=== PATIENT | female | born 1995 | race Caucasian/White ===

== ENCOUNTER 2018-07-06 04:47 | Emergency (ER) | payer SELFPAY ==
--- OUTSIDE RECORDS SUMMARY | 2018-07-06 04:50 | XMS REPORT ---
:1995 Author Organization eClinicalWorks Care Team Providers Name Role Phone Crystal Moody Provider Role Unavailable Allergies, Adverse Reactions, Alerts Substance Reaction Event Type N.K.D.A. Info Not Available Non Drug Allergy Problems Problem Type Condition Code Onset Dates Condition Status Assessment Women's annual routine Z01.419 Active gynecological examination Problem Acne, unspecified acne type L70.9 Active Assessment Furuncle of groin L02.224 Active Assessment Acne, unspecified acne type L70.9 Active Assessment Screen for STD (sexually Z11.3 Active transmitted disease) Medications No Known Medications Results No Known Results Summary Purpose [employer] Submission
--- OUTSIDE RECORDS SUMMARY | 2018-07-06 04:50 | XMS REPORT ---
:1995 Author Organization eClinicalWorks Care Team Providers Name Role Phone Crystal Moody Provider Role Unavailable Allergies, Adverse Reactions, Alerts Substance Reaction Event Type N.K.D.A. Info Not Available Non Drug Allergy Problems Problem Type Condition Code Onset Dates Condition Status Assessment Insertion of Nexplanon Z30.017 Active Problem Acne, unspecified acne type L70.9 Active Assessment Encounter for initial prescription Z30.017 Active of implantable subdermal contraceptive Medications Medication Code Code Instructions Start End Date Status Dosage System Date Nexplanon [facility] [id number] 68 MG September 01, Active as directed Subcutaneous 2017 Results No Known Results Summary Purpose eClinicalWorks Submission
--- OUTSIDE RECORDS SUMMARY | 2018-07-06 04:50 | XMS REPORT ---
:1995 Author Organization eClinicalWorks Care Team Providers Name Role Phone Crystal Moody Provider Role Unavailable Allergies No Known Allergies Problems Problem Type Condition Code Onset Dates Condition Status Problem Acne, unspecified acne type L70.9 Active Medications Medication Code System Code Instructions Start Date End Date Status Dosage Diflucan [facility] [id number] 150 MG Orally August 29, August 31, Active 1 tablet Take one now and 2017 2017 repeat dose in 72h Results No Known Results Summary Purpose eClinicalWorks Submission
--- OUTSIDE RECORDS SUMMARY | 2018-07-06 04:50 | XMS REPORT ---
:1995 Author Organization eClinicalWorks Care Team Providers Name Role Phone Raul Davidson Provider Role Unavailable Allergies, Adverse Reactions, Alerts Substance Reaction Event Type N.K.D.A. Info Not Available Non Drug Allergy Problems Problem Type Condition Code Onset Dates Condition Status Assessment Encounter for surveillance of Z30.46 Active implantable subdermal contraceptive Problem Routine screening for STI (sexually Z11.3 Active transmitted infection) Problem Encounter for surveillance of Z30.46 Active implantable subdermal contraceptive Problem Well woman exam with routine Z01.419 Active gynecological exam Assessment Well woman exam with routine Z01.419 Active gynecological exam Assessment Routine screening for STI (sexually Z11.3 Active transmitted infection) Problem Acne, unspecified acne type L70.9 Active Medications Medication Code Code Instructions Start End Date Status Dosage System Date Nexplanon [facility] [id number] 68 MG September 01, Active as directed Subcutaneous 2017 Results Name Result Date Reference Range Unit Abnormality Flag TSH W/REFLEX TO FT4 ----TSH W/REFLEX TO 1.02 [id number] mIU/L N FT4 HEPATITIS B SURFACE ANTIGEN W/REFL CONFIRM ----HEPATITIS B NON-REACTIVE [id number] NON-REACTIVE N SURFACE ANTIGEN URINALYSIS AUTO W/O SCOPE (31302) ----NIT neg [id number] ----URO 0.2 [id number] ----PROTEIN neg [id number] ----pH 7.0 [id number] ----BLO neg [id number] ----GLUCOSE neg [id number] ----LETITIA TRACE [id number] ----BILIRUBIN neg [id number] ----KETONES neg [id number] ----SPECIFIC 1.015 [id number] GRAVITY RPR (DX) W/REFL TITER AND CONFIRMATORY TESTING ----RPR (DX) W/REFL NON-REACTIVE [id number] NON-REACTIVE N TITER AND CONFIRMATORY TESTING CBC (INCLUDES DIFF/PLT) ----RDW 11.8 [id number] 11.0-15.0 % N ----MCHC 34.3 57495775 32.0-36.0 g/dL N ----MCH 31.7 [id number] 27.0-33.0 pg N ----MCV 92.5 [id number] 80.0-100.0 fL N ----HEMATOCRIT 38.5 [id number] 35.0-45.0 % N ----HEMOGLOBIN 13.2 51644284 11.7-15.5 g/dL N ----BASOPHILS 0.5 00949816 % N ----RED BLOOD CELL 4.16 [id number] 3.80-5.10 Million/uL N COUNT ----WHITE BLOOD 8.2 [id number] 3.8-10.8 Thousand/uL N CELL COUNT ----MONOCYTES 5.6 60866007 % N ----ABSOLUTE 107 63289535 15-500 cells/uL N EOSINOPHILS ----EOSINOPHILS 1.3 73340204 % N ----ABSOLUTE 41 56071136 0-200 cells/uL N BASOPHILS ----NEUTROPHILS 65.6 88412996 % N ----LYMPHOCYTES 27.0 16311733 % N ----MPV 10.6 [id number] 7.5-12.5 fL N ----ABSOLUTE 5379 63784494 7402-3612 cells/uL N NEUTROPHILS ----ABSOLUTE 2214 18387133 850-3900 cells/uL N LYMPHOCYTES ----ABSOLUTE 459 50148618 200-950 cells/uL N MONOCYTES ----PLATELET COUNT 247 [id number] 140-400 Thousand/uL N HIV AG/AB 4TH GEN ----HIV AG/AB, 4TH NON-REACTIVE [id number] NON-REACTIVE N GEN Summary Purpose eClinicalWorks Submission
--- OUTSIDE RECORDS SUMMARY | 2018-07-06 04:50 | XMS REPORT ---
:1995 Author Organization eClinicalWorks Care Team Providers Name Role Phone Crystal Moody Provider Role Unavailable Allergies No Known Allergies Problems Problem Type Condition Code Onset Dates Condition Status Problem Acne, unspecified acne type L70.9 Active Medications No Known Medications Results No Known Results Summary Purpose eClinicalWorks Submission
[2018-07-06] MEDS ORDERED: DERMABOND SKIN ADHESIVE TOP ONE (05:13)
--- NOTE | 2018-07-06 05:41 | ER ---
Nurse's Notes [facility] Name: Silke Perkins Age: 23 yrs Sex: Female : 1995 Arrival Date: 07/06/2018 Time: 04:48 Bed 5 Private MD: Diagnosis: Syncope and collapse;Laceration without foreign body of other part of head-nose;Dysmenorrhea, unspecified;Epistaxis;Fracture of nasal bones Presentation: 07/06 04:55 Presenting complaint: Patient states: I woke up around 0430 H having abdominal cramps I rr5 went to restroom to pee and when I am standing to get some tampons i pass out and hit my face on the tiles. denies nausea and vomiting. 04:55 Transition of care: patient was not received from another setting of care. Onset of rr5 symptoms was July 06, 2018. Risk Assessment: Do you want to hurt yourself or someone else? Patient reports no desire to harm self or others. Initial Sepsis Screen: Does the patient meet any 2 criteria? No. Patient's initial sepsis screen is negative. Does the patient have a suspected source of infection? No. Patient's initial sepsis screen is negative. Note cut wound sustained at nose bridge area. pain score of 5/10 cut wound wound on the nose. Care prior to arrival: None. 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 - Social history:: Smoking status: Patient/guardian denies using tobacco, Patient/guardian denies using alcohol, street drugs. - Family history:: not pertinent. - Ebola Screening: : Patient negative for fever greater than or equal to 101.5 degrees Fahrenheit, and additional compatible Ebola Virus Disease symptoms Patient denies exposure to infectious person Patient denies travel to an Ebola-affected area in the 21 days before illness onset. Screenin:12 Abuse screen: Denies threats or abuse. Denies injuries from another. Nutritional rr5 screening: No deficits noted. Tuberculosis screening: No symptoms or risk factors identified. Fall Risk Fall in past 12 months (25 points). No IV (0 pts). Ambulatory Aid- None/Bed Rest/Nurse Assist (0 pts). Gait- Normal/Bed Rest/Wheelchair (0 pts) Mental Status- Oriented to own ability (0 pts). Total Branch Fall Scale indicates Low Risk Score (25-44 pts). Fall prevention measures have been instituted. Side Rails Up X 2 Placed close to Nursing Station Frequent Obs/Assesments occuring Family Present and informed to notify staff if they need to leave bedside As available Patient and Family Educated on Fall Prevention Program and strategies. Assessment: 05:00 General: Appears in no apparent distress. uncomfortable, Behavior is crying. rr5 05:00 Pain: Complains of pain in nose Pain does not radiate. Pain currently is 5 out of 10 on rr5 a pain scale. Quality of pain is described as aching, Pain began suddenly, Is intermittent. Neuro: Level of Consciousness is awake, alert, obeys commands, Oriented to person, place, time, situation, Appropriate for age Reports a syncopal episode. Cardiovascular: Capillary refill < 3 seconds Patient's skin is warm and dry. Rhythm is regular. Respiratory: Airway is patent Respiratory effort is even, unlabored, Respiratory pattern is regular, symmetrical. GI: Abdomen is round. : Reports cramps on supra pubic area. EENT: No signs and/or symptoms were reported regarding the EENT system. Derm: Skin is intact, Skin temperature is warm Wound noted nose Wound is cut wound due to fall. Musculoskeletal: Capillary refill < 3 seconds, Range of motion: intact in all extremities, swelling at nose noted. 05:58 Reassessment: Patient appears in no apparent distress at this time. Patient is alert, rr5 oriented x 3, equal unlabored respirations, skin warm/dry/pink. discharge instruction given and explained without complaints made. Patient states feeling better. Patient states symptoms have improved. Vital Signs: 04:55 BP 122 / 90; Pulse 88; Resp 17; Temp 98.5; Pulse Ox 100% ; Weight 61.23 kg; Height 5 rr5 ft. 2 in. (157.48 cm); Pain 5/10; 05:11 BP 124 / 81 RA Supine; Pulse 83; rr5 05:12 BP 131 / 78 RA Sitting; Pulse 86 RA; rr5 05:15 BP 113 / 64 RA Standing; Pulse 76; rr5 05:59 BP 115 / 65; Pulse 75; Resp 17; Temp 98.4; Pulse Ox 99% on R/A; rr5 04:55 Body Mass Index 24.69 (61.23 kg, 157.48 cm) rr5 ED Course: 04:48 Patient arrived in ED. ds1 04:52 Inder Vincent MD is Attending Physician. mercedes 04:58 Alpesh Adams, RN is Primary Nurse. rr5 05:08 Triage completed. rr5 05:12 Arm band placed on. rr5 05:15 Patient has correct armband on for positive identification. Bed in low position. Call rr5 light in reach. Side rails up X2. 05:20 Assist provider with laceration repair on nose that was 2.5 cm. or less using rr5 Dermabond. Set up tray. Performed by Inder Vincetn MD Patient tolerated well. 05:33 Patient moved to radiology via wheelchair. kw 05:33 X-ray completed. Patient tolerated procedure well. kw 05:33 Patient moved back from radiology. kw 05:40 Sandra Michael MD is Referral Physician. mercedes 05:51 Nasal Bones XRAY In Process Unspecified. EDMS 05:59 Patient did not have IV access during this emergency room visit. rr5 Administered Medications: 05:56 Drug: KeFLEX 500 mg Route: PO; rr5 06:00 Follow up: Response: Medication administered at discharge. rr5 Point of Care Testing: Blood Glucose: 05:16 Blood Glucose: 112 mg/dL; rr5 Ranges: Outcome: 05:40 Discharge ordered by . mercedes 05:59 Discharged to home ambulatory, with family. rr5 05:59 Condition: stable 05:59 Discharge instructions given to patient, family, Instructed on discharge instructions, follow up and referral plans. medication usage, Demonstrated understanding of instructions, follow-up care, medications, Prescriptions given X 1. 06:00 Patient left the ED. rr5 Signatures: Dispatcher [employer] EDW[place] Inder Vincent MD MD cha Sanford, Demi ds1 Elsi Evangelista kw Alpesh Adams, RN RN rr5
--- NOTE | 2018-07-06 05:41 | EDPHYS ---
Physician Documentation [facility] Name: Silke Perkins Age: 23 yrs Sex: Female : 1995 Arrival Date: 07/06/2018 Time: 04:48 Bed 5 Private MD: ED Physician Inder Vincent HPI: 07/06 05:04 This 23 yrs old Female presents to ER via Unassigned with complaints of mercedes Syncope. 05:04 The patient has experienced syncope, became unresponsive. Onset: The symptoms/episode mercedes began/occurred just prior to arrival. Duration: This was a single episode. Context: the episode(s) was witnessed, by no one, occurred at home. Associated injury: Head/face: nose, laceration, pain, swelling. Associated signs and symptoms: The patient has no apparent associated signs or symptoms, Pertinent positives: vaginal bleeding, menstral cramps. The patient has not experienced similar symptoms in the past. 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 - Social history:: Smoking status: Patient/guardian denies using tobacco, Patient/guardian denies using alcohol, street drugs. - Family history:: not pertinent. - Ebola Screening: : Patient negative for fever greater than or equal to 101.5 degrees Fahrenheit, and additional compatible Ebola Virus Disease symptoms Patient denies exposure to infectious person Patient denies travel to an Ebola-affected area in the 21 days before illness onset. ROS: 05:04 Constitutional: Negative for fever, chills, and weight loss, Eyes: Negative for injury, mercedes pain, redness, and discharge, ENT: Negative for injury, pain, and discharge, Neck: Negative for injury, pain, and swelling, Cardiovascular: Negative for chest pain, palpitations, and edema, Respiratory: Negative for shortness of breath, cough, wheezing, and pleuritic chest pain, Abdomen/GI: Negative for abdominal pain, nausea, vomiting, diarrhea, and constipation, Back: Negative for injury and pain, : Negative for injury, bleeding, discharge, and swelling, MS/Extremity: Negative for injury and deformity, Psych: Negative for depression, anxiety, suicide ideation, homicidal ideation, and hallucinations, Allergy/Immunology: Negative for hives, rash, and allergies, Endocrine: Negative for neck swelling, polydipsia, polyuria, polyphagia, and marked weight changes, Hematologic/Lymphatic: Negative for swollen nodes, abnormal bleeding, and unusual bruising. 05:04 Skin: Positive for laceration(s). Exam: 05:04 Constitutional: This is a well developed, well nourished patient who is awake, alert, mercedes and in no acute distress. Head/Face: Normocephalic, atraumatic. Eyes: Pupils equal round and reactive to light, extra-ocular motions intact. Lids and lashes normal. Conjunctiva and sclera are non-icteric and not injected. Cornea within normal limits. Periorbital areas with no swelling, redness, or edema. ENT: Nares patent. No nasal discharge, no septal abnormalities noted. Tympanic membranes are normal and external auditory canals are clear. Oropharynx with no redness, swelling, or masses, exudates, or evidence of obstruction, uvula midline. Mucous membranes moist. Neck: Trachea midline, no thyromegaly or masses palpated, and no cervical lymphadenopathy. Supple, full range of motion without nuchal rigidity, or vertebral point tenderness. No Meningismus. Chest/axilla: Normal chest wall appearance and motion. Nontender with no deformity. No lesions are appreciated. Cardiovascular: Regular rate and rhythm with a normal S1 and S2. No gallops, murmurs, or rubs. Normal PMI, no JVD. No pulse deficits. Respiratory: Lungs have equal breath sounds bilaterally, clear to auscultation and percussion. No rales, rhonchi or wheezes noted. No increased work of breathing, no retractions or nasal flaring. Abdomen/GI: Soft, non-tender, with normal bowel sounds. No distension or tympany. No guarding or rebound. No evidence of tenderness throughout. Back: No spinal tenderness. No costovertebral tenderness. Full range of motion. Skin: Warm, dry with normal turgor. Normal color with no rashes, no lesions, and no evidence of cellulitis. MS/ Extremity: Pulses equal, no cyanosis. Neurovascular intact. Full, normal range of motion. Neuro: Awake and alert, GCS 15, oriented to person, place, time, and situation. Cranial nerves II-XII grossly intact. Motor strength 5/5 in all extremities. Sensory grossly intact. Cerebellar exam normal. Normal gait. Psych: Awake, alert, with orientation to person, place and time. Behavior, mood, and affect are within normal limits. Vital Signs: 04:55 BP 122 / 90; Pulse 88; Resp 17; Temp 98.5; Pulse Ox 100% ; Weight 61.23 kg; Height 5 rr5 ft. 2 in. (157.48 cm); Pain 5/10; 05:11 BP 124 / 81 RA Supine; Pulse 83; rr5 05:12 BP 131 / 78 RA Sitting; Pulse 86 RA; rr5 05:15 BP 113 / 64 RA Standing; Pulse 76; rr5 05:59 BP 115 / 65; Pulse 75; Resp 17; Temp 98.4; Pulse Ox 99% on R/A; rr5 04:55 Body Mass Index 24.69 (61.23 kg, 157.48 cm) rr5 Laceration: 05:31 Wound Repair of .5cm ( 0.2in ) subcutaneous laceration to nose. Linear shaped.. Distal mercedes neuro/vascular/tendon intact. Anesthesia: none with 0 mls of none. Wound prep: Simple cleansing by me. Skin closed with 1-0 Adhesive skin closure using Dermabond. Patient tolerated well. MDM: 04:52 Patient medically screened. [facility] 05:07 Data reviewed: vital signs, nurses notes, lab test result(s), EKG, radiologic studies. [facility] 07/06 05:20 Order name: Urine Dipstick--Ancillary (enter results) [facility] 07/06 05:20 Order name: Urine --Ancillary (enter results) [facility] 07/06 05:02 Order name: Dermabond; Complete Time: 05:20 [facility] 07/06 05:02 Order name: EKG; Complete Time: 05:03 [facility] 07/06 05:02 Order name: Nasal Bones XRAY [facility] 07/06 05:02 Order name: Urine Dipstick-Ancillary (obtain specimen); Complete Time: 05:16 [facility] 07/06 05:02 Order name: Wound Care; Complete Time: 05:20 [facility] 07/06 05:02 Order name: Urine Test (obtain specimen); Complete Time: 05:16 [facility] 07/06 05:02 Order name: EKG - Nurse/Tech; Complete Time: 05:39 [facility] 07/06 05:02 Order name: Orthostatics; Complete Time: 05:18 [facility] Administered Medications: 05:56 Drug: KeFLEX 500 mg Route: PO; rr5 06:00 Follow up: Response: Medication administered at discharge. rr5 Point of Care Testing: Blood Glucose: 05:16 Blood Glucose: 112 mg/dL; rr5 Ranges: Critical Glucose Levels:Adult <50 mg/dl or >400 mg/dl <40 mg/dl or >180 mg/dl Disposition: 07/06/18 05:40 Discharged to Home. Impression: Syncope and collapse, Laceration without foreign body of other part of head - nose, Dysmenorrhea, unspecified, Epistaxis, Fracture of nasal bones. - Condition is Stable. - Discharge Instructions: Dysmenorrhea, Facial Laceration, Nasal Fracture, Syncope, Facial Laceration, Nywx-yu-Eicv, Syncope, Sgrj-tj-Cvuv, Nasal Fracture, Hdfl-nm-Euiw, Weakness, Zqyk-eb-Xjvj, Dysmenorrhea, Ptdq-qw-Xndm. - Prescriptions for Keflex 500 mg Oral Capsule - take 1 capsule by ORAL route every 6 hours for 10 days; 28 capsule. - Medication Reconciliation Form, Thank You Letter, Antibiotic Education, Prescription Opioid Use, Work release form form. - Follow up: Private Physician; When: 2 - 3 days; Reason: Recheck today's complaints, Continuance of care, Re-evaluation by your physician. Follow up: Sandra Michael MD; When: 2 - 3 days; Reason: Recheck today's complaints, Re-evaluation by your physician. - Problem is new. - Symptoms have improved. Signatures: Dispatcher [employer] Inder Trujillo MD MD cha Roque, Raymond RN RN rr5 Corrections: (The following items were deleted from the chart) 06:00 05:40 07/06/2018 05:40 Discharged to Home. Impression: Syncope and collapse; Laceration rr5 without foreign body of other part of head - nose; Dysmenorrhea, unspecified; Epistaxis; Fracture of nasal bones. Condition is Stable. Discharge Instructions: Dysmenorrhea, Facial Laceration, Syncope, Facial Laceration, Htzp-zn-Fdpj, Syncope, Emuh-zn-Hfez, Weakness, Khff-ji-Opai, Dysmenorrhea, Roxb-te-Xnyb. Prescriptions for Keflex 500 mg Oral Capsule - take 1 capsule by ORAL route every 6 hours for 10 days; 28 capsule. and Forms are Medication Reconciliation Form, Thank You Letter, Antibiotic Education, Prescription Opioid Use. Follow up: Private Physician; When: 2 - 3 days; Reason: Recheck today's complaints, Continuance of care, Re-evaluation by your physician. Follow up: Sandra Michael; When: 2 - 3 days; Reason: Recheck today's complaints, Re-evaluation by your physician. Problem is new. Symptoms have improved. mercedes
[2018-07-06 05:49] LABS: Urine Blood 3+ (NEG); Urine Glucose NEGATIVE (NEG); Urine Protein NEGATIVE (NEG); Urine Specific Gravity 1.025 (1.005-1.030); Urine pH 5.5 (5.0-7.0)
--- NOTE | 2018-07-06 05:52 | EKG ---
Test Date: 2018-07-06 Test Time: 05:23:58 Health Promotion Educator: BRENDA MEASUREMENT RESULTS: Intervals: Rate: 77 MS: 150 QRSD: 98 QT: 382 QTc: 432 [place]: P: 40 MS: 150 QRS: 74 T: 50 INTERPRETIVE STATEMENTS: Normal sinus rhythm with sinus arrhythmia RSR' or QR pattern in V1 suggests right ventricular conduction delay Borderline ECG Compared to ECG 10/18/2011 13:07:51 RSR' in V1 or V2 now present Electronically Signed On 07-06-18 05:52:40 CDT by Aron Rodríguez
[2018-07-06] MEDS ORDERED: CEPHALEXIN 250 MG CAP ONE (06:05)
--- NOTE | 2018-07-06 07:52 | RAD REPORT ---
EXAM DESCRIPTION: RAD - Nasal Bones - 07/06/2018 5:50 am CLINICAL HISTORY: Facial pain status post trauma FINDINGS: Mildly depressed nasal bone fracture Mild deviation of the nasal septum
== END 2018-07-06 06:00 | disposition home or self-care (01) ==
LOC: ER 04:47
PROC: 0JQ10ZZ Repair Face Subcutaneous Tissue and Fascia, Open Approach (ICD-10-PCS; principal; 2018-07-06)
DX: R55 Syncope and collapse (principal); S01.21XA Laceration without foreign body of nose, initial encounter; S02.2XXA Fracture of nasal bones, initial encounter for closed fracture; W18.30XA Fall on same level, unspecified, initial encounter; Y92.009 Unspecified place in unspecified non-institutional (private) residence as the place of occurrence of the external cause; N94.6 Dysmenorrhea, unspecified
CPT/HCPCS: 70160; 81003; 81025; 82962; 93005; 99284

== ENCOUNTER 2021-01-30 10:52 | Emergency (ER) | payer BC, SELFPAY ==
--- OUTSIDE RECORDS SUMMARY | 2021-01-30 10:55 | XMS REPORT | Continuity of Care Document ---
:1995 Author Organization [facility] t Address [address] [place] [address] Care Team Providers Name Role Phone Pcp, Does Not Have A Primary Care Physician Jeane RIVERA Attending Clinician Unavailable Kameron Harris MD Attending Clinician KAMERON HARRIS Attending Clinician Unavailable Doctor Unassigned, Name Attending Clinician Unavailable Payers Payer Name Policy Type Policy Number Effective Date Expiration Date S ource Problems Condition Condition Condition Status Onset Resolution Last Treating Co mments Source Name Details Category Date Date Treatment Clinician Date Missed Missed Disease Active 2020-03 Univers 1-16 ity of 00:00: [address] History of History of Disease Active 2020-03 U nivers anxiety anxiety 0-11 ity of 00:00: [address] Obesity Obesity Disease Active Univers (BMI (BMI 9-13 ity of 30-39.9) 30-39.9) 00:00: [address] Acne, Acne, Problem Active [facility] unspecifie Andreia kes - d acne d acne Memoria type type l Outpati ent Clinics Encounter Encounter Problem Active [facility] - surveillan surveillan Me moria ce of ce of l implantabl implantabl Ou tpati e e ent subdermal subdermal Clin ics contracept contracept geoffrey geoffrey Routine Routine Diagnosis [facility] screening [facility] - for STI for STI Memoria (sexually (sexually l transmitte transmitte Ou tpati d d ent infection) infection) Cl inics Well woman Well woman Diagnosis Active [facility] exam with exam with Luke [facility] - routine routine Memoria gynecologi gynecologi l an exam an exam Outpat i ent Clinics Allergies, Adverse Reactions, Alerts Allergy Allergy Status Severity Reaction(s) Onset Inactive Treating Comm ents Source Name Type Date Date Clinician NO KNOWN Drug Active Univers ALLERGIE Class ity of S [facility] Social History Social Habit Start Date Stop Date Quantity Comments Source ASSERTION [facility] Exposure to Not sure [facility] SARS-CoV-2 [facility] Branch Alcohol intake 2021-01-19 2021-01-19 Ex-drinker [facility] 00:00:00 00:00:00 (finding) [facility] History SDOH 2019-11-14 2019-11-14 99 University o f Alcohol Frequency 00:00:00 00:00:00 [place] [facility] History SDOH 2019-11-14 2019-11-14 99 University o f Alcohol Std 00:00:00 00:00:00 [place] [facility] History SDWY 2019-11-14 2019-11-14 99 University o f Alcohol Binge 00:00:00 00:00:00 [place] [facility] Alcohol Comment 2019-11-14 2019-11-14 social Universit y of 00:00:00 00:00:00 [facility] Sex Assigned At [birth year] Universit y of 00:00:00 00:00:00 [facility] Smoking Status Start Date Stop Date Source Never smoker [facility] Medications Ordered Filled Start Stop Current Ordering Indication Dosage Frequency Signature Comments Components Source Medication Medication Date Date Medication? Clinician (SIG) Name Name 2020-03 Yes Take by Unive rs vit 0-11 mouth. ity of calc,iron,f 15:03: [place] [address] Medical ( Branch VITAMIN ORAL) 2020-03 Yes Take by Unive rs vit 0-11 mouth. ity of calc,iron,f 15:03: [place] [address] Medical ( Branch VITAMIN ORAL) 2020-03 Yes Take by Unive rs vit 0-11 mouth. ity of calc,iron,f 15:03: [place] [address] Medical ( Branch VITAMIN ORAL) 2020-03 Yes Take by Unive rs vit 0-11 mouth. ity of calc,iron,f 15:03: [place] [facility] ( Branch VITAMIN ORAL) SERTraline Yes 50mg Take 50 mg U nivers (ZOLOFT) 50 9-10 by mouth ity of mg tablet 10:19: daily. [address] SERTraline Yes 50mg Take 50 mg U nivers (ZOLOFT) 50 9-10 by mouth ity of mg tablet 10:19: daily. [address] SERTraline Yes 50mg Take 50 mg U nivers (ZOLOFT) 50 9-10 by mouth ity of mg tablet 10:19: daily. [address] SERTraline Yes 50mg Take 50 mg U nivers (ZOLOFT) 50 9-10 by mouth ity of mg tablet 10:19: daily. [address] Nexplanon Nexplanon Yes Raul as [facility] directed [facility] - 00:00: [facility] Immunizations Ordered Filled Immunization Date Status Comments [facility] e Immunization Name Name SARS-COV-2 COVID-19 2020-08-12 Completed Unive rsity of PFIZER VACCINE 00:00:00 [facility] SARS-COV-2 COVID-19 2020-08-12 Completed Unive rsity of PFIZER VACCINE 00:00:00 [facility] SARS-COV-2 COVID-19 2020-08-12 Completed Unive rsity of PFIZER VACCINE 00:00:00 [facility] SARS-COV-2 COVID-19 2020-08-12 Completed Unive rsity of PFIZER VACCINE 00:00:00 [facility] SARS-COV-2 COVID-19 2020-07-22 Completed Unive rsity of PFIZER VACCINE 00:00:00 [facility] SARS-COV-2 COVID-19 2020-07-22 Completed Unive rsity of PFIZER VACCINE 00:00:00 [facility] SARS-COV-2 COVID-19 2020-07-22 Completed Unive rsity of PFIZER VACCINE 00:00:00 [facility] SARS-COV-2 COVID-19 2020-07-22 Completed Unive rsity of PFIZER VACCINE 00:00:00 [facility] Vital Signs Vital Name Observation Time Observation Value Comments Source Systolic blood 2021-01-19 20:10:00 112 mm[Hg] Univer sity of pressure [facility] Diastolic blood 2021-01-19 20:10:00 80 mm[Hg] Unive rsity of pressure [facility] Heart rate 2021-01-19 20:10:00 83 /min [facility] Body temperature 2021-01-19 20:10:00 37.11 Candy [facility] Respiratory rate 2021-01-19 20:10:00 18 /min [facility] Body height 2021-01-19 20:10:00 157.5 cm [facility] ty [facility] Body weight 2021-01-19 20:10:00 81.647 kg [facility] BMI 2021-01-19 20:10:00 32.92 kg/m2 [facility] Procedures Procedure Date / Time Performing Clinician Source Performed US OB TRANSVAGINAL 2021-01-19 21:28:14 Errol Harris [facility] 2021-01-12 06:01:00 Doctor Unassigned, No [facility] ULTRASOUND Name [facility] Encounters Start End Encounter Admission Attending Care Care Encounter Source Date/Time Date/Time Type Type Clinicians Facility Department ID 2021-01-30 2021-01-30 Nurse MERLY Ching [id number] Univers 00:00:00 00:00:00 Triage Sherri MICK [id number] it y of [facility] [id number] Lucio as [phone] [address] 2021-01-19 2021-01-19 Office Errol Harris [facility] [id number] Univers 13:49:46 14:49:27 Visit Kameron MOBLEY [id number] i ty [facility] [id number] [phone] Mo dical [address] 2021-01-19 2021-01-19 Outpatient R ERROL HARRIS [facility] [id number] Univers 13:45:00 14:49:27 ity [facility] 2021-01-12 2021-01-12 Orders Doctor MERLY [id number] 00:00:00 00:00:00 Only Unassigned, MICK [id number] ity of [place] [facility] [id number] Lucio as [phone] [address] 2018-02-28 2018-02-28 Outpatient Artie Alvat [id number] [facility] [address] 10:45:00 10:45:00 [facility] 2017-09-01 2017-09-01 Outpatient [place] [id number] 11:15:00 11:15:00 [facility] 2017-08-30 2017-08-30 Outpatient Artie [place] [id number] 13:17:00 13:17:00 t [facility] 2017-08-29 2017-08-29 Outpatient [place] [id number] 17:12:00 17:12:00 t [facility] 2017-08-24 2017-08-24 Outpatient [place] [id number] 10:15:00 10:15:00 t [facility] Results This patient has no known results.
[2021-01-30] MEDS ORDERED: NA CHLORIDE 0.9% 1,000 ML ONE (11:45)
[2021-01-30 12:00] LABS: Absolute Lymphocytes (CBC) 1.5 K/uL (0.7-4.9); Basophils % 0.2 % (0-1.3); Hematocrit 34.5 % (36.0-45.0); MPV 7.7 fL (7.6-11.3); RBC Red Blood Cell Count 3.74 M/uL (3.86-4.86)
[2021-01-30 12:22] LABS: BUN Blood Urea Nitrogen 11 mg/dL (7-18); Bicarbonate 23 mmol/L (21-32); Glucose Level 120 mg/dL (74-106); Potassium 3.9 mmol/L (3.5-5.1); Sodium Level 138 mmol/L (136-145)
[2021-01-30 12:33] LABS: Blood Morphology Comment NOT SEEN (NOT SEEN); Platelet Estimate ADEQ; White Blood Cell Scan OK (OK)
[2021-01-30 12:44] LABS: HCG, Quantitative 4777 mIU/mL (1-3)
--- NOTE | 2021-01-30 13:19 | RAD REPORT ---
EXAM DESCRIPTION: US - Transvaginal OB - 01/30/2021 1:06 pm CLINICAL HISTORY: ABD CRAMPING, COMPARISON: No comparisons FINDINGS: No IUP identified. Heterogeneous appearance of the endometrium which measures 10 mm. Irreg ular-shaped hypoechoic structure within the endometrial canal of the lower uterine segment. The right ovary measures 3.1 x 2 x 2 cm with volume of 6.3 cc . Vascular flow is present. The left ovary was n ot visualized. IMPRESSION: Heterogeneous endometrium with ovoid structure in the endometrial canal of the lower zoran rine segment. This could be sequela of prior failed first trimester with blighted gestation al sac.
--- NOTE | 2021-01-30 14:08 | ER ---
Nurse's Notes [facility] Name: Silke Perkins Age: 26 yrs Sex: Female : 1995 Arrival Date: 01/30/2021 Time: 10:57 Bed 19 Private MD: Diagnosis: Incomplete spontaneous without complication-bleeding/pain;Pelvic and perineal pain;Elevated white blood cell count Presentation: 01/30 11:33 Chief complaint: Patient states: had US done at [facility] and was told she would have a iw miscarriage, LMP was first week of Nov, was told the baby stopped growing at 6 weeks, started spotting on Thanksgiving and today is having heavy bleeding with clots and lots of pain. Coronavirus screen: At this time, the client does not indicate any symptoms associated with coronavirus-19. Ebola Screen: Patient negative for fever greater than or equal to 101.5 degrees Fahrenheit, and additional compatible Ebola Virus Disease symptoms Patient denies exposure to infectious person. Patient denies travel to an Ebola-affected area in the 21 days before illness onset. No symptoms or risks identified at this time. Initial Sepsis Screen: Does the patient meet any 2 criteria? No. Patient's initial sepsis screen is negative. Does the patient have a suspected source of infection? No. Patient's initial sepsis screen is negative. Risk Assessment: Do you want to hurt yourself or someone else? Patient reports no desire to harm self or others. Onset of symptoms was January 30, 2021. 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 - Social history:: Smoking status: Patient denies any tobacco usage or history of. Assessment: 12:28 Reassessment: survey technologist present at bedside - pelvic ultrasound in [facility] progress. Vital Signs: 11:33 Weight 81.65 kg; Height 5 ft. 2 in. (157.48 cm); Pain 6/10; iw 11:36 BP 95 / 53; Pulse 89; Resp 16; Pulse Ox 100% on R/A; kj1 11:50 BP 109 / 62; Pulse 89; iw 12:30 BP 112 / 59; Pulse 72; Resp 18; Temp 98.4(O); Pulse Ox 100% on R/A; sl2 13:30 BP 114 / 62; Pulse 88; Resp 18; Pulse Ox 100% ; sl2 15:00 BP 118 / 76; Pulse 88; Resp 18; Temp 98.2; Pulse Ox 99% on R/A; sl2 11:33 Body Mass Index 32.92 (81.65 kg, 157.48 cm) iw ED Course: 10:57 Patient arrived in ED. mr 11:31 Inder Vincent MD is Attending Physician. mercedes 11:36 Triage completed. iw 11:46 Initial lab(s) drawn, by me, sent to lab. Inserted saline lock: 20 gauge in right kj1 antecubital area, using aseptic technique. Blood collected. 12:46 Cailin Olvera, MIGUEL is Primary Nurse. sl2 12:48 US Transvaginal Ob Sent. sl2 13:05 US Transvaginal Ob In Process Unspecified. EDMS 14:06 Kyle Atkins MD is Referral Physician. mercedes 15:41 No provider procedures requiring assistance completed. IV discontinued, intact, sl2 bleeding controlled, No redness/swelling at site. Pressure dressing applied. Administered Medications: 11:44 Not Given (Hemodynamic Parameters): morphine 2 mg IVP once; (PAIN>8) RASS on ADMN: iw Combtv4, Very Agttd3, Agttd2, Rstlss1, AlertClm0, Drwsy-1, LtSdtn-2, ModSdtn-3, DpSdtn-4, UnArsble-5 x2 11:50 Drug: NS 0.9% 1000 ml Route: IV; Rate: 1 bolus; Site: right antecubital; iw 12:48 Follow up: Response: No adverse reaction; IV Status: Infusion continued sl2 14:57 Follow up: IV Status: Completed infusion sl2 14:40 Drug: METHERgine 0.2 mg Route: IM; Site: Ventrogluteal RIGHT; sl2 15:20 Follow up: Response: No adverse reaction sl2 14:47 Drug: Rocephin (cefTRIAXone) 1 grams Route: IV; Rate: per protocol; Site: right sl2 antecubital; 15:22 Follow up: Response: No adverse reaction; IV Status: Completed infusion; IV Intake: [id number] 15:40 Not Given (Patient Refused): Zofran (Ondansetron) 4 mg IVP once; over 2 minutes sl2 Intake: 15:22 IV: 10ml; Total: 10ml. sl2 Outcome: 14:07 Discharge ordered by MD. long 15:41 Discharged to home ambulatory, with family. sl2 15:41 Condition: stable 15:41 Discharge instructions given to patient, family, Instructed on discharge instructions, follow up and referral plans. medication usage, Demonstrated understanding of instructions, follow-up care, medications, Prescriptions given X X5 15:42 Patient left the ED. sl2 Signatures: Dispatcher [employer] EDInder Mcelroy MD MD cha Rivera, Mary mr Williams, Irene, Muna Mora RN1 Cailin Olvera RN RN sl2
--- NOTE | 2021-01-30 14:08 | EDPHYS ---
Physician Documentation [facility] Name: Silke Perkins Age: 26 yrs Sex: Female : 1995 Arrival Date: 01/30/2021 Time: 10:57 Bed 19 Private MD: ED Physician Inder Vincent HPI: 01/30 14:02 This 26 yrs old Female presents to ER via Ambulatory with complaints of mercedes Vaginal Bleeding, + Preg <12wks. 14:02 The patient presents to the emergency department with vaginal bleeding, that is mercedes moderate. The estimated gestational age is 10 weeks. course: care: private OB physician, Dr. Vallejo. Previous pregnancies: the patient has never been . Associated signs and symptoms: The patient has no apparent associated signs or symptoms. The patient has not experienced similar symptoms in the past. 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 - Social history:: Smoking status: Patient denies any tobacco usage or history of. ROS: 14:03 Constitutional: Negative for fever, chills, and weight loss, Eyes: Negative for injury, mercedes pain, redness, and discharge, ENT: Negative for injury, pain, and discharge, Neck: Negative for injury, pain, and swelling, Cardiovascular: Negative for chest pain, palpitations, and edema, Respiratory: Negative for shortness of breath, cough, wheezing, and pleuritic chest pain, Abdomen/GI: Negative for abdominal pain, nausea, vomiting, diarrhea, and constipation, Back: Negative for injury and pain, MS/Extremity: Negative for injury and deformity, Skin: Negative for injury, rash, and discoloration, Neuro: Negative for headache, weakness, numbness, tingling, and seizure, Psych: Negative for depression, anxiety, suicide ideation, homicidal ideation, and hallucinations, Allergy/Immunology: Negative for hives, rash, and allergies, Endocrine: Negative for neck swelling, polydipsia, polyuria, polyphagia, and marked weight changes, Hematologic/Lymphatic: Negative for swollen nodes, abnormal bleeding, and unusual bruising. 14:03 : Positive for vaginal bleeding. Exam: 14:03 Constitutional: This is a well developed, well nourished patient who is awake, alert, mercedes and in no acute distress. Head/Face: Normocephalic, atraumatic. Eyes: Pupils equal round and reactive to light, extra-ocular motions intact. Lids and lashes normal. Conjunctiva and sclera are non-icteric and not injected. Cornea within normal limits. Periorbital areas with no swelling, redness, or edema. ENT: Nares patent. No nasal discharge, no septal abnormalities noted. Tympanic membranes are normal and external auditory canals are clear. Oropharynx with no redness, swelling, or masses, exudates, or evidence of obstruction, uvula midline. Mucous membranes moist. Neck: Trachea midline, no thyromegaly or masses palpated, and no cervical lymphadenopathy. Supple, full range of motion without nuchal rigidity, or vertebral point tenderness. No Meningismus. Chest/axilla: Normal chest wall appearance and motion. Nontender with no deformity. No lesions are appreciated. Cardiovascular: Regular rate and rhythm with a normal S1 and S2. No gallops, murmurs, or rubs. Normal PMI, no JVD. No pulse deficits. Respiratory: Lungs have equal breath sounds bilaterally, clear to auscultation and percussion. No rales, rhonchi or wheezes noted. No increased work of breathing, no retractions or nasal flaring. Abdomen/GI: Soft, non-tender, with normal bowel sounds. No distension or tympany. No guarding or rebound. No evidence of tenderness throughout. Back: No spinal tenderness. No costovertebral tenderness. Full range of motion. Female : Normal external genitalia. Skin: Warm, dry with normal turgor. Normal color with no rashes, no lesions, and no evidence of cellulitis. MS/ Extremity: Pulses equal, no cyanosis. Neurovascular intact. Full, normal range of motion. Neuro: Awake and alert, GCS 15, oriented to person, place, time, and situation. Cranial nerves II-XII grossly intact. Motor strength 5/5 in all extremities. Sensory grossly intact. Cerebellar exam normal. Normal gait. Psych: Awake, alert, with orientation to person, place and time. Behavior, mood, and affect are within normal limits. 14:03 : Pelvic Exam: External exam: is normal, Speculum exam: mild bleeding, os that is open, discharge, is not appreciated, a female wholesaler was present for the exam, Bladder: is normal, Rectal exam: is normal. Vital Signs: 11:33 Weight 81.65 kg; Height 5 ft. 2 in. (157.48 cm); Pain 6/10; iw 11:36 BP 95 / 53; Pulse 89; Resp 16; Pulse Ox 100% on R/A; kj1 11:50 BP 109 / 62; Pulse 89; iw 12:30 BP 112 / 59; Pulse 72; Resp 18; Temp 98.4(O); Pulse Ox 100% on R/A; sl2 13:30 BP 114 / 62; Pulse 88; Resp 18; Pulse Ox 100% ; sl2 15:00 BP 118 / 76; Pulse 88; Resp 18; Temp 98.2; Pulse Ox 99% on R/A; sl2 11:33 Body Mass Index 32.92 (81.65 kg, 157.48 cm) iw MDM: 11:31 Patient medically screened. mercedes 14:04 Differential diagnosis: retained Ab. Data reviewed: vital signs, nurses notes, lab test mercedes result(s), radiologic studies, ultrasound. Data interpreted: radiation monitor: rate is 72 beats/min, rhythm is regular, Pulse oximetry: on room air is 100 %. Counseling: I had a detailed discussion with the patient and/or guardian regarding: the historical points, exam findings, and any diagnostic results supporting the discharge/admit diagnosis, lab results, radiology results, the need for outpatient follow up, for definitive care, an OB/Gyne specialist. 01/30 11: Order name: Abo/rh Typing; Complete Time: 12:33 mercedes 01/30 11: Order name: Basic Metabolic Panel; Complete Time: 14:00 [facility] 01/30 11: Order name: CBC with Diff; Complete Time: 14:00 mercedes 01/30 11: Order name: Quantitative Hcg; Complete Time: 14:00 mercedes 01/30 12:02 Order name: CBC Smear Scan; Complete Time: 14:00 [facility] 01/30 15:35 Order name: Urine Dipstick-Ancillary EDNJ 01/30 11:31 Order name: IV Saline Lock; Complete Time: 12:48 [facility] 01/30 11:31 Order name: Labs collected and sent; Complete Time: 12:48 [facility] 01/30 11:31 Order name: US Transvaginal Ob; Complete Time: 14:00 [facility] 01/30 11:31 Order name: NPO; Complete Time: 12:48 [facility] 01/30 11:31 Order name: Urine Dipstick-Ancillary (obtain specimen); Complete Time: 15:40 [facility] 01/30 11:31 Order name: Urine Test (obtain specimen); Complete Time: 15:40 [facility] 01/30 12:45 Order name: Pelvic Exam Setup; Complete Time: 14:57 [facility] 01/30 14:02 Order name: Orthostatics mercedes Administered Medications: 11:44 Not Given (Hemodynamic Parameters): morphine 2 mg IVP once; (PAIN>8) RASS on ADMN: iw Combtv4, Very Agttd3, Agttd2, Rstlss1, AlertClm0, Drwsy-1, LtSdtn-2, ModSdtn-3, DpSdtn-4, UnArsble-5 x2 11:50 Drug: NS 0.9% 1000 ml Route: IV; Rate: 1 bolus; Site: right antecubital; iw 12:48 Follow up: Response: No adverse reaction; IV Status: Infusion continued sl2 14:57 Follow up: IV Status: Completed infusion sl2 14:40 Drug: METHERgine 0.2 mg Route: IM; Site: Ventrogluteal RIGHT; sl2 15:20 Follow up: Response: No adverse reaction sl2 14:47 Drug: Rocephin (cefTRIAXone) 1 grams Route: IV; Rate: per protocol; Site: right sl2 antecubital; 15:22 Follow up: Response: No adverse reaction; IV Status: Completed infusion; IV Intake: [id number] 15:40 Not Given (Patient Refused): Zofran (Ondansetron) 4 mg IVP once; over 2 minutes sl2 Disposition Summary: 01/30/21 14:07 Discharge Ordered Location: Home mercedes Problem: new mercedes Symptoms: have improved mercedes Condition: Stable mercedes Diagnosis - Incomplete spontaneous without complication - bleeding/pain mercedes - Pelvic and perineal pain mercedes - Elevated white blood cell count mercedes Followup: mercedes - With: Private Physician - When: 2 - 3 days - Reason: Recheck today's complaints, Continuance of care, Re-evaluation by your physician Followup: mercedes - With: Kyle Atkins MD - When: 1 - 2 days - Reason: Recheck today's complaints, Re-evaluation by your physician Discharge Instructions: - Discharge Summary Sheet mercedes - Incomplete Miscarriage mercedes - Pelvic Pain, Female mercedes - Miscarriage mercedes - Pelvic Pain, Female, Efnn-rb-Cedt mercedes - Miscarriage, Hyog-md-Afjz [facility] Forms: - Medication Reconciliation Form [facility] - Thank You Letter [facility] - Antibiotic Education [facility] - Prescription Opioid Use [facility] Prescriptions: - Methergine 0.2 mg Oral tablet - take 1 tablet by ORAL route every 6 hours; 5 tablet; Refills: 0, Product [facility] Selection Permitted - Cephalexin 500 mg Oral Capsule - take 1 capsule by ORAL route every 6 hours for 7 days; 28 capsule; Refills: 0, [facility] Product Selection Permitted - Ibuprofen 600 mg Oral Tablet - take 1 tablet by ORAL route every 6 hours As needed take with food; 30 tablet; [facility] Refills: 0, Product Selection Permitted - Zofran 4 mg Oral Tablet - take 1 tablet by ORAL route every 12 hours As needed; 20 tablet; Refills: 0, [facility] Product Selection Permitted - Tylenol-Codeine #3 300 mg-30 mg Oral - take 2 tablet by ORAL route every 4-6 hours; 15 tablet; Refills: 0, Product [facility] Selection Permitted Signatures: Dispatcher [employer] Inder Trujillo MD MD cha Williams, Irene, RN Cailin Tarango RN RN sl2
[2021-01-30] MEDS ORDERED: CEFTRIAXONE 1000 MG/VIAL ONE (14:40)
[2021-01-30] MEDS ORDERED: METHYLERGONOVINE 0.2MG/ML AMP IM ONE (14:42)
[2021-01-30 15:35] LABS: Urine Blood 3+ (Negative); Urine Glucose Negative (Negative); Urine Protein 2+ (Negative); Urine Specific Gravity <=1.005 (1.005-1.030); Urine pH 5.5 (5.0-7.0)
[2021-01-30 15:53] VITALS: BP 118/76; TEMP 98.2; O2SAT 99
== END 2021-01-30 15:42 | disposition home or self-care (01) ==
LOC: ER 10:52
DX: O03.4 Incomplete spontaneous abortion without complication (principal)
CPT/HCPCS: 96365; 96361; 85025; 80048; 36415; 86900; 86901; 84702; 81003; 76817; 96372; 99284; J2210; J7030